=== PATIENT | male | born 1950 | race Caucasian/White ===

== ENCOUNTER 2016-06-29 10:13 | Inpatient (IN) | payer OTHER ==
[2016-06-29] VITALS (12 sets, daily range): BP systolic 158–211; BP diastolic 71–139; PULSE 78–106; RESP 18–27; O2SAT 94–99
[~2016-06-29] VITALS: Ht 177.8 cm; Wt 96.1 kg
[~2016-06-29 10:13] MED LIST: APIX5TAB PO; ATOR10TA66 PO; CALC-990 PO; FUR20 PO; GUAI400T57 PO; LISI-567 PO; METO-272 PO; POTA20TA7 PO; SPIR25TA PO
--- NOTE | 2016-06-29 10:47 | ED.REPORT ---
HPI-Dyspnea / Wheezing Date of Service Jun 29, 2016 ED Provider: David Sibley MD A 65 year old male with h/o CHF and HTN presents to the ED c/o SOB intermittently for last 3 weeks, symptoms slowly becoming worse. Associated orthopnea. He cannot lye flat and must sleep propped upright. He reports he did not follow up with cardiology and has been off all his medications. He had lasix the longest, but ran out of that too several weeks ago. He reports edema , and reports that when he was on his medication, he experimented with CVD medication which seemed to help him, the patient having taken some in the last 24 hours. He took aspirin earlier today. Nursing Notes Stated Complaint: SOB Chief Complaint: Respiratory Distress Nursing Notes Reviewed: Yes ([employer], maufait not reconciled) Allergies: Coded Allergies: No Known Allergies (Unverified , 10/06/15) Scheduled Apixaban (Eliquis) 5 Mg Tablet 5 MG PO BID Atorvastatin Calcium (Atorvastatin Calcium) 10 Mg Tablet 10 MG PO HS Calcium Carb/Mag Ox/Zinc Sulf (Mwrklow-Nkdqmucap-Nilo Tablet) 334 Mg-134 Mg-5 Mg Tablet 1 EACH PO DAILY Furosemide (Furosemide) 20 Mg Tab 20 MG PO DAILY Lisinopril (Lisinopril) 20 Mg Tablet 20 MG PO DAILY Lisinopril (Lisinopril) 20 Mg Tablet 20 MG PO HS Metoprolol Succinate ER (Metoprolol Succinate ER) 50 Mg Tab.er.24h 50 MG PO DAILY Potassium Chloride ER (Klor-Con M20) 20 Meq Tablet 20 MEQ PO DAILY Spironolactone (Aldactone) 25 Mg Tablet 25 MG PO DAILY Scheduled PRN Guaifenesin (Guaifenesin) 400 Mg Tablet 800 MG PO BID PRN PRN For Congestion General Time Seen by MD: 10:41 Chief Complaint Shortness of breath Hx Obtained From: Patient Arrived By: Walk-in Sudden in Onset?: No Onset Occurred: More than a week ago... (3 weeks) Symptom Duration: Intermittent Severity: Current: Moderate Severity: Maximum: Moderate Recent Healthcare: No recent doctor visit Similar Sx Previous: No Past Medical History Past Medical History Notes: Prior admission for acute decompensated heart failure in October 2015 Echo October 2015: Dilated left and right ventricles, dilated atria, severe systolic function with EF of 20-30% with global severe hypokinesis Past Medical History History of CHF History of atrial flutter with RVR, status post electrical cardioversion October 2015 Hypertension History of elevated troponin History of acute kidney injury creatinine 1.35 in October 2059 depression prediabetic hernia, herniated disc Past Surgical History spinal surgery Denies: Appendectomy, Cholecystectomy Smoking History Never Smoker Social History none reported Ambulatory Status Independent Review of Systems Review of Systems Note: difficulty sleeping Constitutional: Denies: Chills, Fever Respiratory: Reports: Shortness of breath Cardiovascular: Denies: Chest pain Complete sys rev & neg: except as marked. Physical Exam Initial Vital Signs Vital Signs (First) Date Time Temp Pulse Resp B/P Pulse Ox O2 Delivery O2 Flow Rate FiO2 06/29/16 10:32 36.6 106 22 211/139 98 Room Air 06/29/16 11:41 30 Initial VS: Reviewed, Vital signs abnormal General/Constitutional: Awake, Alert Patient is sitting up on the edge of his bed with legs dangling over the edge because SOB is so bad that it prevents him from lying down flat on his back. Neck: Atraumatic, Supple Resp Distress / Stridor: Positive: Resp distress severe (signifigant respiratory distress) Rales / Rhonchi: Positive: Rales bilateral bases ENT: Atraumatic, Mucous membranes moist Abdomen: Atraumatic, No guarding, No rebound Skin: Atraumatic, Color NL, Warm, Dry Neurologic: Oriented X3, Speech NL Head / Eyes: Atraumatic, Normocephalic, PERRL, EOMI Interpretation & Diagnostics Lab Results Interpretation Result Diagram: 06/29/16 1120 06/29/16 1120 Test 06/29/16 11:20 06/29/16 11:50 White Blood Count 7.7th/mm3 (3.8-10.1) Red Blood Count 5.13mil/mm3 (4.40-5.80) Hemoglobin 14.9g/dL (13.8-17.2) Hematocrit 44.0% (41.0-50.0) Mean Corpuscular Volume 85.8fL (81-100) Mean Corpuscular Hemoglobin 29.0pg (27.0-35.0) Mean Corpuscular Hemoglobin Concent 33.9% (32.0-37.0) Red Cell Distribution Width 15.8% (12.3-15.4) Platelet Count 214bil/L (150-400) Neutrophils (%) (Auto) 77.9% (40-74) Lymphocytes (%) (Auto) 13.2% (14-46) Monocytes (%) (Auto) 6.1% (4-12) Eosinophils (%) (Auto) 2.0% (0-5) Basophils (%) (Auto) 0.7% (0-3) Sodium Level 135mEq/L (134-144) Potassium Level 3.9mEq/L (3.5-5.2) Chloride Level 99mEq/L (97-108) Carbon Dioxide Level 19mmol/L (18-29) Blood Urea Nitrogen 17mg/dL (8-27) Creatinine 1.31mg/dL (0.76-1.27) Estimat Glomerular Filtration Rate 59mL/min (>59) Glucose Level 135mg/dL (60-99) Calcium Level 9.5mg/dL (8.5-10.1) Total Bilirubin 1.4mg/dL (0.0-1.2) Aspartate Amino Transf (AST/SGOT) 24U/L (0-50) Alanine Aminotransferase (ALT/SGPT) 27U/L (0-44) Alkaline Phosphatase 87U/L (25-160) Troponin T 0.025ug/L (0.0-0.011) Pro-B-Type Natriuretic Peptide 7086pg/mL (0-210) Total Protein 6.9g/dL (6.4-8.4) Albumin 4.0g/dL (3.4-5.0) Urine Color Yellow (YELLOW) Urine Appearance Clear (CLEAR,HAZY) Urine pH 6.0 (5.0-8.0) Urine Specific [place] 1.015 (1.003-1.035) Urine Protein 100mg/dL (NEG,TRACE) Urine Glucose (UA) Negativemg/dL (NEGATIVE) Urine Ketones Negativemg/dL (NEGATIVE) Urine Occult Blood Negative (NEGATIVE) Urine Nitrite Negative (NEGATIVE) Urine Bilirubin Negative (NEGATIVE) Urine Urobilinogen Normalmg/dL (NORMAL) Urine Leukocyte Esterase Negative (NEGATIVE) Urine RBC 0-2/hpf (0-2) Urine WBC 0-5/hpf (0-5) Urine Epithelial Cells Occasional/hpf (NONE-MOD) Urine Crystals None seen (NONE SEEN) Urine Bacteria Few/hpf (NONE-FEW) Urine Hyaline Casts Rare/lpf (NONE) Urine Granular Casts None seen (NONE SEEN) Urine Waxy Casts None seen (NONE SEEN) Urine Red Blood Cell Casts None seen (NONE SEEN) Urine White Blood Cell Casts None seen (NONE SEEN) Urine Mucus None seen (None Seen) Urine Trichomonas None seen (NONE SEEN) Urine Yeast None (NONE SEEN) Urinalysis Comment None Urine Culture Reflexed Not indicated Lab Results Interpretation: CBC normal CMP mild renal sufficiency BNP elevated Troponin marginally elevated Urinalysis negative ECG Interpretation ECG Interpretation: Rate is 103. Sinus tachycardia. Left atrial enlargement. Incomplete left bundle branch block. LVH with secondary repolarization abnormality. Anterior ST elevation, probably due to LVH. Time: 10:30 Interpreted by: ED physician X-Ray Chest Interpretation Chest Xray Interpretation: IMPRESSION: Moderate cardiomegaly, without acute cardiopulmonary disease. Dictated by: Anderson iWlde M.D. on 06/29/2016 at 11:02 Approved by: Anderson Wilde M.D. on 06/29/2016 at 11:03 Interpretation / Wet Read by: Interpret - Radiologist Re-Eval/Medical Decision Med Decision/Clinical Course This is a 65-year-old male who has severe global cardiomyopathy with previous admission in October 2015 at an echo around 20% at that time. Multitude of medications, reports he did not keep his follow up anybody, he completely ran out of all of his medications in recent weeks and months. He did have Lasix prescription which lasted the longest, but is now been out for the past 2-3 weeks. Over the past 2-3 weeks he presents with worsening shortness of breath, dyspnea on exertion, and orthopnea. He denies la nena chest pain. Last night he could not sleep even sitting upright, and so came to the emergency department. He is noticing increasing edema of both legs which was artery severe at baseline. He denies fevers or chills. On exam the patient's profoundly hypertensive, he is dyspneic even at rest, and is sitting upright with his legs over the edge of the gurney as he reports his legs up on the gurney worsens his shortness of breath., He has decreased breath sounds, rarles, JVD, and profound lower extremity edema. EKG does not reveal clear acute ischemic changes, however overall presentation is concerning for acute decompensated heart failure setting around hypotension. Patient remained multiple sublingual nitroglycerin, and was placed on BiPAP, had Nitropaste applied, and was started on a nitro drip with improvement. He also received empiric Lasix. Patient responded to therapy has improved. He still hypertensive and is on a nitro drip at 200 mics. He is being admitted to the unit for continued care but is markedly improved he may be able to be weaned off drips and transferred to PCU. At this point the patient is clear heart failure from medication noncompliance, because of that I have not immediately consult cardiology as I think the first episode when resuming medication and medical therapy. And depending on the patient's response to therapy, the need for formal cardiac consultation can be determined by the hospitalist. The patient be admitted for continued management, and is significantly improved at time of admission. Source of Hx: Old records Re-Evaluation/Progress #1: Time of Eval: 11:03 Patient Status: Condition improved Re-Evaluation/Progress Note: Explained plan for admission. Re-Evaluation/Progress #2: Time of Eval: 11:07 Re-Evaluation/Progress Note: Gave Nitro to patient. Re-Evaluation/Progress #3: Time of Eval: 11:35 Patient Status: Condition improved Re-Evaluation/Progress Note: Rechecked patient who is improved. Consultation : Referral / Consult Name: Vitor Hung MD Consulted With: Hospitalist Call Returned at: 11:51 Lead Python Developer: Accepts admit Differential Diagnosis: Positive: Congestive heart failure, Negative: Allergic reaction, Cardiogenic shock, Dysrhythmia, Foreign body airway, Pneumonia, Pneumothorax, Pulmonary embolism Counseled Regarding: Diagnosis, Lab results, Need for follow-up, Need for admission Discharge & Departure Impression: Primary Impression: Acute decompensated heart failure Additional Impression: Noncompliance with medication regimen Disposition: ADMITTED TO HOSPITAL Discharge Condition All VS Reviewed: Yes Condition: Improved Referrals: Fay Dubon MD (PCP) Crit Care Except Billable Proc Time Spent: 30-74 minutes Services Performed: Patient management by me, Time spent at bedside, Reviewing test results, Reviewing imaging, Discussing patient care, Documentation in record, Time with fam/surrogate, Other Scribe Attestation Portions of this note were transcribed by Anderson Douglas. IDr. Sibley personally performed the history, physical exam and medical decision-making; I reviewed and confirmed the accuracy of the information in the transcribed note. Signed by: Adilene Escobar, 06/29/2016, 1102. copies to: Fay Dubon MD, Matthew F MD Jun 29, 2016 10:47 Anderson Douglas Jun 29, 2016 10:57
--- NOTE | 2016-06-29 11:04 | DRSVH ---
PROCEDURE: X-RAY CHEST ONE VIEW, PORTABLE ([id number]) INDICATIONS: 65 year-old male with shortness of breath. TECHNIQUE: One view of the chest was acquired. COMPARISON: [facility], CR, XR CHEST 2VW, 10/13/2015, 15:25. [facility], CR, XR CHEST 1VW (PORTABLE), 10/12/2015, 15:29. [facility], CR, XR CHEST 2VW, 10/06/2015, 16: 48. FINDINGS: Surgical changes and devices: None. Lungs and pleura: No pleural effusions or pneumothorax. Lungs are clear. Mediastinum: Mediastinal contours appear normal. Moderate cardiomegaly is unchanged. Bones and chest wall: No suspicious bony lesions. Overlying soft tissues appear unremarkable. IMPRESSION: Moderate cardiomegaly, without acute cardiopulmonary disease. Dictated by: Anderson Wilde M.D. on 06/29/2016 at 11:02 Approved by: Anderson Wilde M.D. on 06/29/2016 at 11:03
[2016-06-29] MEDS ORDERED: Furosemide 10 mg/mL 4 mL Inj IVPUSH ONE (11:05)
[2016-06-29] MEDS ORDERED: Nitroglycerin 2% 1 Gm Ointment TOPICAL SCH (11:10)
[2016-06-29 11:30] LABS: BASOPHILS % (AUTO) 0.7 % (0-3); MONOCYTES % (AUTO) 6.1 % (4-12); Mean Corpuscular Volume 85.8 fL (81-100); NEUTROPHILS % (AUTO) 77.9 % (40-74); Platelet Count 214 bil/L (150-400)
[2016-06-29] MEDS: Nitroglycerin 50 mg/250 mL D5W 50,000 MCG in IV Premix 1 EACH IV SCH ×2 (11:53→15:33)
[2016-06-29 12:02] LABS: APPEARANCE,URINE CLEAR (CLEAR,HAZY); COLOR,URINE YELLOW (YELLOW); OCCULT BLOOD,URINE NEGATIVE (NEGATIVE); UROBILINOGEN,URINE NORMAL (NORMAL)
[2016-06-29 12:07] LABS: TROPONIN T 0.025 ug/L (0.0-0.011)
[2016-06-29] MEDS ORDERED: Polyethylene Glycol (PEG) 17 Gm Powder PO PRN (13:20)
[2016-06-29] MEDS ORDERED: Alum-Mag Hydrox-Simeth 30 mL Suspension PO PRN (13:20)
[2016-06-29] MEDS ORDERED: Ondansetron 2 mg/mL 2 mL Inj IVPUSH PRN (13:20)
[2016-06-29] MEDS ORDERED: Senna-Docusate 8.6-50 mg Tablet PO PRN (13:20)
[2016-06-29 14:17] LABS: INR 1.32 ratio
[2016-06-29 14:41] LABS: Magnesium 1.9 mg/dL (1.6-2.6)
--- NOTE | 2016-06-29 16:03 | PCM.HPMED ---
Subjective Date of Service Jun 29, 2016 Primary Provider: Admitting Physician: Vitor Hung MD Primary Care Physician: Fay Dubon MD Attending Physician: Vitor Hung MD Chief Complaint: Shortness of breath History of Present Illness: is a 65-year-old gentleman with past medical history of congestive heart failure systolic dysfunction, hypertension, depression, prediabetes, atrial flutter with RVR (cardioverted 10/2015) presented to [facility] emergency department via personally owned vehicle secondary to worsening shortness of breath times several weeks. Patient was last admitted to Hospital October 2015 for CHF exacerbation, upon discharged he was prescribed multiple medications and followed up with his primary care physician at [facility]. He saw his primary doctor once after being discharged and not again. He states that somewhere along the way his medications dropped off in that he stopped filling his prescriptions. When asked why he said because "life got in my way". He saw Dr. Hinton cardiology one time as well and was prescribed his current medication list is seen in the med rec. Over the past several weeks he has become increasingly short of breath on exertion and while laying flat stating he must sleep sitting up or using multiple pillows. He states he has a markedly increasing lower extremity edema over the last few weeks. He denies chest pain, headache prior to arrival, syncope, abdominal pain, GI symptoms. He states polyuria, shortness of breath increased lower extremity edema swelling and erythema, left eye blurry vision and at time of interview endorses a headache. He states blurry vision in his left eye. In the ED he was given nitroglycerin sublingual followed by Nitropatch followed by nitro drip at rate of 150 at time of admission. He was also given a milligrams IV Lasix with improvement meant of his shortness of breath and markedly increase in urinary output. Allergies Coded Allergies: No Known Allergies (Unverified , 06/29/16) Home Medications Home medications per med rec: Apizxoban 5 mg by mouth twice a day Lisinopril 20 mg by mouth at bedtime Lisinopril 20 mg by mouth daily Metoprolol ER 50 mg by mouth daily Spironolactone 25 mg by mouth daily Potassium chloride 20 mEq by mouth daily Atorvastatin 10 mg by mouth at bedtime Furosemide 20 mg by mouth daily Calcium carbonate magnesium oxide zinc sulfate multivitamin tablet one daily Guaifenesin 800 mg by mouth twice a day as needed PMH Congestive heart failure with systolic dysfunction Hypertension Depression Atrial flutter with RVR status post cardioversion 10/2015 Acute kidney injury Hyperlipidemia Prediabetes Chronic back pain Inguinal hernia Surgical History spinal surgery Family History Mother and father both had history of hypertension, denies family history of CVA and DE, diabetes Recent history of 3-year-old grandnephew from brain cancer this past year Social History Occupation: poker player Hx Alcohol Use: Yes (RARE) Hx Substance Use: Yes (PO marijuana OILS ETC FOR PAIN AND SLEEP) Hx Tobacco Use: No Smoking Status: Never Smoker Living Arrangement: Alone Additional Information Retired accountant assistant and private household worker, currently works as a direct care professional One of his daughters, his son-in-law and his grandchild live in [place] He has another daughter who lives in [place] Exam Vital Signs Vital Sign - Last Date Time Temp Pulse Resp B/P Pulse Ox O2 Delivery O2 Flow Rate FiO2 06/29/16 15:28 36.7 78 24 192/109 97 Nasal Cannula 2.00 06/29/16 11:41 30 Exam General: Older than stated age male, obese sitting up in hospital bed on oxygen via nasal cannula in no acute distress, appropriately interactive. HEENT: Normocephalic, atraumatic. External ears without defect. Pupils equal, round, and reactive to light and accommodation. Anicteric sclerae, moist conjunctivae, and no lid lag. Neck: Supple with full range of motion. No JVD appreciated the patient sitting up in hospital bed Cardiovascular: Regular rate and rhythm with no murmurs, rubs, or gallops appreciated Pulmonary: Clear to auscultation upper anterior lobes bilaterally, crackles heard left and right lower bases. No use of accessory muscles nonlabored breathing Abdomen: Distended abdomen soft and nontender to palpation 4 quadrants. Extremities: Bilateral lower extremity edema extending to mid thigh. Mildly pitting. Lower extremity erythema bilaterally circumferential around Skin: Normal temperature, turgor, and texture Neurological: Cranial nerves grossly intact. Psychiatric: Normal mood and affect. Alert and oriented to person, place, and time. Lab and Diagnostics Result Diagram: 06/29/16 1120 06/29/16 1120 X-Rays, CTs and MRIs . X-RAY CHEST ONE VIEW, PORTABLE IMPRESSION: Moderate cardiomegaly, without acute cardiopulmonary disease. Dictated by: Anderson Wilde M.D. on 06/29/2016 at 11:02 12-lead ECG EKG showed sinus rhythm in the 80s, left bundle branch block. Assessment & Plan 65 male past with medical history CHF, systolic dysfunction, depression, hypertension admitted for congestive heart failure exacerbation hospital day 1. 1. CHF exacerbation with systolic dysfunction. Acute on chronic. Present on admission. Ongoing. - Most likely secondary to medication noncompliance - Lasix 40 mg IV in the ED - CCU status - Nitroglycerin drip - Continue Lasix 40 mg IV twice a day - Hold fluids - Strict monitoring of ins and outs - We will restart home medications once hemodynamically stable - Echo pending - Continue telemetry 2. Hypertension. Present on admission. Chronic. Ongoing - Most likely secondary to medication noncompliance exacerbated by #1 - Refractory to nitroglycerin and diuresis to date - Add nicardipine will wean nitroglycerin after better control of hemodynamic state is achieved - SBP to remain above 160 today 3. Chronic kidney disease. Present on admission. Ongoing - History of elevated creatinine levels between 1.3-1.5 - Creatinine elevated on admit 1.3 - Avoid nephrotoxic agents - Monitor closely secondary to Lasix administration - Continue monitor 4.Elevated troponin. Present on admission. Unknown chronicity. Ongoing - Initial troponin level in the ED 0.025 - Most likely secondary to #1and #3 5. Hyperglycemia. Present on admission. Ongoing. - A1c pending 6. Hyperlipidemia. Present on admission. Chronic. Ongoing - Continue home statin 7. Depression and chronic. Present on admission. Ongoing - Not currently on any home medications - We will continue to monitor Patient Status: Patient was admitted under inpatient status with expected length of stay greater than two midnights due to severity of presenting symptoms , risk of adverse event, and complexity of treatment plan. Pain Evaluation: Adequate Pain Control GI Prophylaxis: H2 valente VTE Prophylaxis: Sub-Q Heparin (Unfractionated) (hepi) Resuscitation Status: CPR: Attempt Resuscitation Attending Statement The patient was seen and examined together with Dr. Chand on 06/29/2016 and I agree with the history, exam and plan as outlined in the note above. . ESTRELLA CHAND DO Jun 29, 2016 16:03 Vitor Hung MD Jun 30, 2016 08:12
--- NOTE | 2016-06-29 16:06 | DRSVH ---
[facility] [address] [place] [address] Echocardiogram Report Name: DAVID FLOWER MStudy Date: 06/29/2016 Height: 70 in Hospital Exam Location: [facility] Weight: 230 lb Gender: Male BSA: 2.2 m2 : 1950 Age: 65 yrs BP: 180/104 mmHg Reason For Study: HEART FAILURE Ordering Physician: Performed By: Darvin James Referring Physician: Abelardo GARCIA Interpretation Summary The left ventricle is mildly dilated. Left ventricular systolic function is moderately reduced. The ejection fraction is estimated to be 40-45%. Compared to the prior exam, the left ventricular function is improved. Diastolic function could not be accurately assessed due to confounding valvular disease. The right ventricle is normal size. Right ventricular systolic function is mildly reduced. The right ventricular systolic pressure is estimated at 37 mmHg assuming a right atrial pressure of 3 mm Hg. Both atria are severely dilated. There is severe mitral regurgitation. Flow reversal noted in pulmonary veins consistent with significant mitral regurgitation. Compared to the prior [facility], there has been an increase in the severity of mitral regurgitation. There is no other significant valvular heart disease. The ascending aorta is mildly enlarged. Procedure: A two-dimensional transthoracic echocardiogram with color flow and Doppler was performed. The study quality was technically good. Comparison is made with the echocardiogram of 10/13/15. The patient was in normal sinus rhythm during the exam. Left Ventricle: The left ventricle is mildly dilated. Left ventricular wall thickness is mildly increased. Left ventricular systolic function is moderately reduced. The ejection fraction is estimated to be 40-45%. Compared to the prior exam, the left ventricular function is improved. There is mild to moderate global hypokinesis of the left ventricle. Diastolic function could not be accurately assessed due to confounding valvular disease. Right Ventricle: The right ventricle is normal size. Right ventricular systolic function is mildly reduced. Atria: Both atria are severely dilated. The interatrial septum is intact with no evidence for an atrial septal defect. Mitral Valve: The mitral valve leaflets appear mildly thickened, but open well. There is severe mitral regurgitation. Flow reversal noted in pulmonary veins consistent with significant mitral regurgitation. Compared to the prior echo study, there has been an increase in the severity of mitral regurgitation. Aortic Valve: The aortic valve is trileaflet. The aortic valve opens well. No aortic regurgitation is present. Tricuspid Valve: The tricuspid valve is normal in structure and function. There is mild tricuspid regurgitation. The right ventricular systolic pressure is estimated at 37 mmHg assuming a right atrial pressure of 3 mm Hg. Pulmonic Valve: The pulmonic valve is normal in structure and function. There is trace pulmonic regurgitation. There is no other significant valvular heart disease. Great Vessels: The aortic root is normal size. The ascending aorta is mildly enlarged. The pulmonary artery is normal size. The IVC is of normal diameter and collapses greater than 50% with a sniff. This suggests a low right atrial pressure of 3 mm Hg. Pericardium/ Pleura There is no pericardial effusion. There is no pleural effusion. MMode/2D Measurements & Calculations LVIDd: 6.0 cm RA long axis: 7.1 cm LVOT diam LVIDs: 4.3 cm LA A2 area: 41.4 cm FS: 28.7 % LA A4 area: 36.4 cm RA area: 32.7 cm AoV Opening EPSS: 1.3 cm LA length (vol): 7.5 cm RA vol: 128.1 ml IVSd: 1.4 cm LA vol: 169.7 ml RA : 57.9 ml/m2 Ao root diam LVPWd: 1.4 cm LA vol index asc Aorta Diam: 3.7 cm IVC diam: 1.9 cm EDV(MOD-sp2) LV steele. diameter/BSA LV sys. diameter/BSA RVD1 (basal) (cm/m^2): 2.7 (cm/m^2): 1.9 : 4.4 cm ESV(MOD-sp2) EF(MOD-sp2) RVD2 (mid) : 3.6 cm Doppler Measurements & Calculations Ao V2 max MV E max von MV E/A: 1.6 TR max von : 147.6 cm/sec : 122.2 cm/sec Med Peak E' Von : 289.9 cm/sec Ao max PG MV A max von TR max P.6 mmHg : 8.7 mmHg : 74.9 cm/sec E/E' med: 30.5 PA V2 max: 68.6 cm/sec Ao mean PG Pulm A Revs Dur PA mean P.92 mmHg : 5.6 mmHg PA Accel Time: 0.08 sec MV A dur: 0.13 sec MV dec time Ao V2 mean PA V2 mean Pulm A Revs Dur - MV A : 0.16 sec : 113.2 cm/sec : 44.8 cm/sec Dur: -0.05 msec Ao V2 VTI: 29.1 cmPA pr(Accel) : 37.9 mmHg Reading Physician:PM
--- NOTE | 2016-06-29 16:07 | NUR ---
Admit/ hypertension/headache Patient was admitted to CCU at 1300 today. Patient was awake and oriented. Oxygen saturation on 4l NC was 100%. Oxygen gradually decreased to 2L NC with oxygen saturation remaining 98-99%. Patient denied having shortness of breath while at rest but appeared to having increased work of breathing with activity in bed such as repositioning. Patient arrived with nitroglycerine drip at 150mcg/min. at this level patient was hypertensive with SBP 180-210 and MAP 110-135. Nitroglycerin drip was increased to 180mcg/min with no improvement in BP. Patient also developed a 6-7/10 headache since arriving in CCU MD was consulted regarding this findings. No farther increase in nitroglycerin drip at this time- MD to gradually reintroduce patients home. Patient was medicated with Tylenol 650mg PO for headache- continue assessment.
[2016-06-29] MEDS: Sodium Chloride LOK Flush 10 mL Syringe IVFLUSH SCH ×2 (16:30→23:34)
[2016-06-29] MEDS ORDERED: Heparin 5,000 Unit/mL Inj SUBQ SCH (16:50)
[2016-06-29] MEDS: NiCARdipine Inj 25 MG in Dextrose 5% 240 ML IV SCH ×3 (16:56→23:34)
--- NOTE | 2016-06-29 19:11 | NUR ---
Normalized BP Nicardipine drip was started at 1700 today. Within 45min SBP started to decrease to 150-160 ranges. Nitroglycerin drip was trued gradually down by increments of 50mcg/min and placed on standby by 1814. SBP continue decrease to 130-140 ranges with MD stated goal for SBP of 140-150- nicardipine drip was titrated down to 4mg/h from 5mg /h by 1829. Patient stated that his headache resolved and denied having any pain at eh time. Report was given to the receiving RN continue assessment.
[2016-06-29] MEDS ORDERED: Furosemide 10 mg/mL 4 mL Inj IVPUSH SCH (20:30)
[2016-06-30] VITALS (8 sets, daily range): BP systolic 111–164; BP diastolic 69–94; PULSE 64–83; RESP 14–22; O2SAT 92–97
[2016-06-30 03:32] LABS: BASOPHILS % (AUTO) 0.3 % (0-3); EOSINOPHILS % (AUTO) 2.3 % (0-5); Mean Corpuscular Hemoglobin 28.3 pg (27.0-35.0); NEUTROPHILS % (AUTO) 84.3 % (40-74); Platelet Count 240 bil/L (150-400)
[2016-06-30 03:58] LABS: TROPONIN T 0.022 ug/L (0.0-0.011)
[2016-06-30 04:14] LABS: Magnesium 1.7 mg/dL (1.6-2.6); Phosphorus 3.3 mg/dL (2.5-4.9)
--- NOTE | 2016-06-30 04:53 | NUR ---
P: hypertension I: nicardipine drip E: Denies pain, dyspnea, N/V. Nicardipine drip at maintenance phase at 3mg/hr. SBP 140-160s. UOP very responsive to lasix voiding 8875ml via urinal. Tele SR w/ IVCD. RA sat dozing = 88%. 2L NC and sats are in the mid 90s. Intermittent loose cough. Sleeping intermittently. Talkative at times.
[2016-06-30] MEDS ORDERED: Potassium Chloride 20 mEq SR Tablet PO ONE ×2 (06:50→14:20)
--- NOTE | 2016-06-30 06:58 | DRSVH ---
PROCEDURE: X-RAY CHEST ONE VIEW, PORTABLE ([id number]) INDICATIONS: sob TECHNIQUE: One view of the chest was acquired. COMPARISON: [facility], CR, XR CHEST 1VW (PORTABLE), 06/29/2016, 10:32. FINDINGS: Surgical changes and devices: None. Lungs and pleura: No pleural effusions or pneumothorax. Lungs are clear. Mediastinum: Mediastinal contours appear normal. Heart size is enlarged. Bones and chest wall: No suspicious bony lesions. Overlying soft tissues appear unremarkable. IMPRESSION: Cardiomegaly without acute pulmonary process. Dictated by: Esthela Hale M.D. on 06/30/2016 at 6:56 Approved by: Esthela Hale M.D. on 06/30/2016 at 6:56
[2016-06-30] MEDS ORDERED: Glucose 40% Oral Gel 15 Gm Tube PO PRN (07:40)
--- NOTE | 2016-06-30 07:42 | PCM.PNMED ---
Subjective Date of Service Jun 30, 2016 Subjective Overnight: Urine output total approximately 8 L overnight. Nitro drip discontinued with transition to nicardipine drip. One report of O2 saturations dropping with room air though overall remained in the mid 90s on room air. No other events reported, patient slept well through the night. Heart rate remained sinus rhythm in 70s to 80s. Today: Patient awake and alert dictating appropriately sitting up in bed. States he feels much better overall, no longer feels any shortness of breath. Denies any chest pain. Denies any abdominal pain. States headache is resolved. Exam Vital Signs Vital Sign - Last Date Time Temp Pulse Resp B/P Pulse Ox O2 Delivery O2 Flow Rate FiO2 06/30/16 04:30 36.6 81 14 164/79 97 Nasal Cannula 2.00 06/29/16 11:41 30 Intake and Output 06/29/16 06/29/16 06/30/16 Cumulative From/Thru 14:59 22:59 06:59 06/29/16 10:32 - 06/30/16 06:35 Intake Total 264 ml 1683 ml 1947 ml Output Total 1050 ml 2650 ml 9225 ml 53761 ml Balance -1050 ml -2386 ml -7542 ml -35252 ml Intake Oral 50 ml 1280 ml 1330 ml IV Total 214 ml 403 ml 617 ml Output Urine Total 1050 ml 2650 ml 9225 ml 86525 ml # Voids 4 11 15 # Bowel Movements 0 0 Exam General: Older than stated age male, obese sitting up in hospital bed, no supplemental oxygen in place. In no acute distress, appropriately interactive. HEENT: Normocephalic, atraumatic. External ears without defect. Pupils equal, round, and reactive to light and accommodation. Neck: Supple with full range of motion. No JVD. Cardiovascular: Regular rate and rhythm with no murmurs, rubs, or gallops appreciated Pulmonary: Mild expiratory crackles heard right upper and lower lung base. No use of accessory muscles nonlabored breathing Abdomen: Distended abdomen soft and nontender to palpation 4 quadrants. Extremities: Bilateral lower extremity edema extending to mid thigh, improved from yesterday. Lower extremity erythema bilaterally circumferential around Skin: Normal temperature, turgor, and texture Neurological: Cranial nerves grossly intact. Psychiatric: Normal mood and affect. Alert and oriented to person, place, and time. IVs and Medications Medications Reviewed: Medications were reviewed in detail Lab and Diagnostics Result Diagram: 06/30/16 0320 06/30/16 0320 Microbiology Nasal MRSA screen negative X-Rays, CTs and MRIs . X-RAY CHEST ONE VIEW, PORTABLE IMPRESSION: Moderate cardiomegaly, without acute cardiopulmonary disease. Dictated by: Anderson Wilde M.D. on 06/29/2016 at 11:02 X-RAY CHEST ONE VIEW, PORTABLE IMPRESSION: Cardiomegaly without acute pulmonary process. Dictated by: Esthela Hale M.D. on 06/30/2016 at 6:56 12-lead ECG EKG showed sinus rhythm in the 80s, left bundle branch block. Cardiac Echo Impressions . Echocardiogram Report Interpretation Summary: The left ventricle is mildly dilated. Left ventricular systolic function is moderately reduced. The ejection fraction is estimated to be 40-45%. Compared to the prior exam, the left ventricular function is improved. Diastolic function could not be accurately assessed due to confounding valvular disease. The right ventricle is normal size. Right ventricular systolic function is mildly reduced. The right ventricular systolic pressure is estimated at 37 mmHg assuming a right atrial pressure of 3 mm Hg. Both atria are severely dilated. There is severe mitral regurgitation. Flow reversal noted in pulmonary veins consistent with significant mitral regurgitation. Compared to the prior BUSHRA, there has been an increase in the severity of mitral regurgitation. There is no other significant valvular heart disease. The ascending aorta is mildly enlarged. Assessment & Plan 65-year-old male past medical history CHF, systolic dysfunction, depression, hypertension admitted for congestive heart failure exacerbation hospital day 2. 1. CHF exacerbation, systolic dysfunction. Acute on chronic Present on admission. Ongoing. - Most likely secondary to medication noncompliance - Lasix 40 mg IV in the ED - Urine output today approximately 9.2 L - CCU status - Nitroglycerin drip weaned transition to nicardipine drip overnight - Transitioned to oral Lasix 40 mg twice a day - Hold fluids - Strict monitoring of ins and outs - Restarting home medication, lisinopril. - Echo showed EF 40-45% (improved from previous exam), bilateral severe atrial dilation, severe mitral regurgitation - Continue telemetry 2. Hypertension. Present on admission. Chronic. Improved - Most likely secondary to medication noncompliance exacerbated by #1 - Refractory to nitroglycerin - Very responsive to nicardipine drip with normalization of blood pressure, we will begin to wean today with addition of home medication - Added home spironolactone 3. Chronic kidney disease. Present on admission. Ongoing - History of elevated creatinine levels between 1.3-1.5 - Creatinine elevated on admit 1.3, trending down - Avoid nephrotoxic agents - Monitor closely secondary to Lasix administration - Continue monitor 4.Elevated troponin. Present on admission. Unknown chronicity. Ongoing - Initial troponin level in the ED 0.025 - Most likely secondary to #1and #3 - Troponin remained stable 5. Hyperglycemia. Present on admission. Ongoing. - A1c 5.9 - Low-dose correctional scale 6. Hyperlipidemia. Present on admission. Chronic. Ongoing - Continue home statin 7. Depression and chronic. Present on admission. Ongoing - Not currently on any home medications for this - We will continue to monitor Disposition: Remain inpatient status, secondary to PCC after successful wean from nicardipine drip. Will continue to optimize home medications. Pain Evaluation: Adequate Pain Control GI Prophylaxis: H2 valetne VTE Prophylaxis: Sub-Q Heparin (Unfractionated) (hepi) Resuscitation Status: CPR: Attempt Resuscitation Attending Statement The patient was seen and examined together with Dr. Chand on 06/30/2016 and I agree with the history, exam and plan as outlined in the note above. . ESTRELLA CHAND DO Jun 30, 2016 07:42 Vitor Hung MD Jul 01, 2016 07:34
[2016-06-30] MEDS: Insulin LISPRO 300 Unit/3 mL Inj SUBQ SCH ×4 (08:00→20:29)
[2016-06-30] MEDS ORDERED: Potassium Chloride 20 mEq SR Tablet PO SCH (08:30)
[2016-06-30] MEDS: Sodium Chloride LOK Flush 10 mL Syringe IVFLUSH SCH ×2 (08:30→15:49)
[2016-06-30] MEDS: NiCARdipine Inj 25 MG in Dextrose 5% 240 ML IV SCH ×4 (08:42→20:29)
--- NOTE | 2016-06-30 15:43 | NUR ---
Social Work: Screening Data: Pt is a 65 y/o male admitted for CHF. Pt's PCP is Dr Dubon, pt's insurance is [employer]. EMR reviewed. Readmit score is 5. [employer] will continue to follow for possible HH need for RN. Assessment: Pt who is independent at baseline. Plan: Pt will d/c home via POV when medically stable. [employer] will continue to follow for possible HH need for RN. SEAN Shay
--- NOTE | 2016-06-30 16:25 | NUR ---
Hemodynamics/Activity Nicardipine weaned off once Lisinopril PO started. 1600 BP, 111/83, which is "low" for patient. Voiding well per urinal. Lasix given as ordered. LE edema continues, but according to patient is in improving. Patient is up independently in room now and on a portable tele box. PCC status. Using cane when ambulating and know to call for help if he is feeling dizzy.
--- NOTE | 2016-06-30 16:56 | NUR ---
CHF NUTRITION EDUCATION. Received consult from Dr. Chand for CHF education. The patient states that he has done significant research on the topic of sodium restriction and believes that electrolyte balance is the lang factor in controlling CHF. He declined education and reference materials.
[2016-07-01] VITALS (10 sets, daily range): BP systolic 146–159; BP diastolic 85–102; PULSE 55–87; RESP 16–24; O2SAT 92–96
[2016-07-01] MEDS: Sodium Chloride LOK Flush 10 mL Syringe IVFLUSH SCH ×3 (00:40→16:30)
[2016-07-01] MEDS: NiCARdipine Inj 25 MG in Dextrose 5% 240 ML IV SCH (03:05)
--- NOTE | 2016-07-01 03:14 | NUR ---
Activity: Pt. ambulating independently in room and in hallway. Tolerating activity well. Gait strong and steady. No overt signs or symptoms of distress. Pt. talkative with staff and appears to be in good spirits.
[2016-07-01 03:31] LABS: BASOPHILS % (AUTO) 0.5 % (0-3); EOSINOPHILS % (AUTO) 3.8 % (0-5); MONOCYTES % (AUTO) 10.1 % (4-12); Mean Corpuscular Hemoglobin 28.4 pg (27.0-35.0); Mean Corpuscular Volume 82.3 fL (81-100); NEUTROPHILS % (AUTO) 72.3 % (40-74); Platelet Count 204 bil/L (150-400)
[2016-07-01 03:52] LABS: Magnesium 1.7 mg/dL (1.6-2.6)
[2016-07-01] MEDS: Insulin LISPRO 300 Unit/3 mL Inj SUBQ SCH ×4 (08:00→21:01)
--- NOTE | 2016-07-01 11:08 | NUR ---
Social Work: Readiness for d/c Data: Pt is on day 2 of hospitalization. EMR reviewed. Pt discussed in rounds, states pt likely to d/c in 1-2 days. states no need for RN HH as this time, pt needs to follow up with his PCP. No other anticipated MOLD BREAKER needs at this time. MOLD BREAKER will continue to follow if needs arise. Assessment: Pt who is independent at baseline. Plan: Pt will d/c home via POV when medically stable. No other anticipated MOLD BREAKER needs at this time. MOLD BREAKER will continue to follow if needs arise. SEAN Shay
--- NOTE | 2016-07-01 15:45 | PCM.PNMED ---
Subjective Date of Service Jul 01, 2016 Subjective Patient is a 65-year-old male with systolic CHF, depression, and hypertension admitted for congestive heart failure exacerbation. Hospital day #3. No overnight events. The patient reports feeling some fatigue, which he attributes to lower blood pressure. He reports feeling well otherwise. Exam Vital Signs Vital Sign - Last Date Time Temp Pulse Resp B/P Pulse Ox O2 Delivery O2 Flow Rate FiO2 07/01/16 12:17 36.9 63 16 146/85 95 Room Air 06/30/16 04:30 2.00 06/29/16 11:41 30 Intake and Output 06/30/16 06/30/16 07/01/16 Cumulative From/Thru 15:00 23:00 07:00 06/29/16 10:32 - 07/01/16 06:19 Intake Total 366 ml 940 ml 3253 ml Output Total 750 ml 450 ml 10819 ml Balance -384 ml 490 ml -63203 ml Intake Oral 200 ml 940 ml 2470 ml IV Total 166 ml 783 ml Output Urine Total 750 ml 450 ml 97677 ml # Voids 15 # Bowel Movements 1 1 Exam General: Patient sitting on edge of bed in no acute distress, appropriately interactive. HEENT: Normocephalic, atraumatic. External ears without defect. Cardiovascular: Regular rate and rhythm with no murmurs, rubs, or gallops appreciated Pulmonary: Mild expiratory wheeze on right. No use of accessory muscles. Abdomen: Mild distention of abdomen. Nontender to palpation Extremities: Bilateral lower extremity edema extending just distal to knees. Lower extremity erythema bilaterally Skin: Normal temperature, turgor, and texture Neurological: Grossly neurologically intact Psychiatric: Normal mood and affect. Alert and oriented to person, place, and time. Lab and Diagnostics Result Diagram: 07/01/16 0310 07/01/16 0310 Microbiology Nasal MRSA screen negative X-Rays, CTs and MRIs . X-RAY CHEST ONE VIEW, PORTABLE IMPRESSION: Moderate cardiomegaly, without acute cardiopulmonary disease. Dictated by: Anderson Wilde M.D. on 06/29/2016 at 11:02 X-RAY CHEST ONE VIEW, PORTABLE IMPRESSION: Cardiomegaly without acute pulmonary process. Dictated by: Esthela Hale M.D. on 06/30/2016 at 6:56 12-lead ECG EKG showed sinus rhythm in the 80s, left bundle branch block. Cardiac Echo Impressions . Echocardiogram Report Interpretation Summary: The left ventricle is mildly dilated. Left ventricular systolic function is moderately reduced. The ejection fraction is estimated to be 40-45%. Compared to the prior exam, the left ventricular function is improved. Diastolic function could not be accurately assessed due to confounding valvular disease. The right ventricle is normal size. Right ventricular systolic function is mildly reduced. The right ventricular systolic pressure is estimated at 37 mmHg assuming a right atrial pressure of 3 mm Hg. Both atria are severely dilated. There is severe mitral regurgitation. Flow reversal noted in pulmonary veins consistent with significant mitral regurgitation. Compared to the prior BUSHRA, there has been an increase in the severity of mitral regurgitation. There is no other significant valvular heart disease. The ascending aorta is mildly enlarged. Assessment & Plan 65-year-old male past medical history CHF, systolic dysfunction, depression, hypertension admitted for congestive heart failure exacerbation. Hospital day # 3. 1. CHF exacerbation, systolic dysfunction. Acute on chronic. Present on admission. Ongoing. - Most likely secondary to medication noncompliance - Echo showed EF 40-45% (improved from previous exam), bilateral severe atrial dilation, severe mitral regurgitation - Lasix 40 mg IV in the ED - Lasix decreased from 40mg BID to 40mg daily - Strict monitoring of ins and outs - Restart lisinopril 40mg daily and metoprolol 12.5mg BID - Continue spironolactone 25mg daily - Continue telemetry 2. Chronic hypertension. Present on admission. Improved - Most likely secondary to medication noncompliance exacerbated by #1 - Refractory to nitroglycerin - Antihypertensive as above 3. Chronic kidney disease. Present on admission. Ongoing - Baseline creatinine between 1.3-1.5 - Avoid nephrotoxic agents - Follow with CMP 4.Elevated troponin. Unknown chronicity. Present on admission. Ongoing - Initial troponin level in the ED 0.025 - Most likely secondary to #1and #3 - Troponin stable 5. Hyperglycemia. Present on admission. - A1c 5.9 - Low-dose insulin Lispro correctional scale 6. Hyperlipidemia, chronic. Present on admission - Continue home dose atorvastatin 10mg QHS 7. Depression, chronic. Present on admission. - Not currently on any home medications for this - We will continue to monitor Disposition: Likely discharge tomorrow following transition of IV medications to PO Pain Evaluation: Adequate Pain Control GI Prophylaxis: H2 valente VTE Prophylaxis: Sub-Q Heparin (Unfractionated) (hepi) Resuscitation Status: CPR: Attempt Resuscitation Attending Statement The patient was seen and examined together with Dr. Short on 07/01/2016 and I agree with the history, exam and plan as outlined in the note above. . Cedric Short DO Jul 01, 2016 14:35 Vitor Hung MD July 02, 2016 07:48
--- NOTE | 2016-07-01 18:11 | NUR ---
Activity Pt independent in room, able to walk around nurse unit with cane, steady gait. Pt had no c/o SOB through the day however complaining of a runny nose, stating normal for him. Ongoing care.
[2016-07-02] MEDS: Sodium Chloride LOK Flush 10 mL Syringe IVFLUSH SCH ×2 (00:50→07:52)
[2016-07-02 03:48] VITALS: BP 172/119; PULSE 87; RESP 20; O2SAT 99
[2016-07-02 03:55] VITALS: BP 161/102; PULSE 81
--- NOTE | 2016-07-02 04:22 | NUR ---
Hypertension: BP: 161/102, HR: 81, pt. asymptomatic. Physician notified of findings, no new orders received. Will continue to monitor. Pt. denies pain, denies SOB.
[2016-07-02 04:28] LABS: BASOPHILS % (AUTO) 0.4 % (0-3); EOSINOPHILS % (AUTO) 5.3 % (0-5); MONOCYTES % (AUTO) 9.6 % (4-12); Mean Corpuscular Hemoglobin 28.8 pg (27.0-35.0); Mean Corpuscular Volume 84.8 fL (81-100); NEUTROPHILS % (AUTO) 68.2 % (40-74); Platelet Count 249 bil/L (150-400)
[2016-07-02 05:03] LABS: Magnesium 1.9 mg/dL (1.6-2.6)
[2016-07-02 07:48] VITALS: BP 164/102; PULSE 60; RESP 15; O2SAT 97
[2016-07-02] MEDS: Insulin LISPRO 300 Unit/3 mL Inj SUBQ SCH (08:00)
[2016-07-02 09:14] VITALS: PULSE 83
[2016-07-02] MEDS ORDERED: APIX5TAB PO (10:24)
[2016-07-02] MEDS ORDERED: FURO40TA4 PO (10:24)
[2016-07-02] MEDS ORDERED: LISI-567 PO (10:24)
[2016-07-02] MEDS ORDERED: ATOR10TA66 PO (10:24)
[2016-07-02] MEDS ORDERED: METO25TA6 PO (10:24)
--- NOTE | 2016-07-02 10:33 | PCM.DIMED ---
Therese Leos DO 07/02/16 1032: Discharge Instructions Date of Service July 02, 2016 Dates of Hospitalization Jun 29, 2016 at 12:42 Discharge Diagnosis Discharge Diagnosis 1. CHF exacerbation, systolic dysfunction. Acute on chronic. Present on admission. Improved 2. Chronic hypertension. Present on admission. Ongoing 3. Chronic kidney disease. Present on admission. Ongoing 4.Elevated troponin. Unknown chronicity. Present on admission. Ongoing/stable 5. Hyperglycemia. Present on admission. Improved 6. Hyperlipidemia, chronic. Present on admission. Ongoing 7. Depression, chronic. Present on admission. Ongoing Diet Heart Healthy Activity No restrictions Call your provider Fever or Chills, Shortness of breath, Bleeding, Chest pain, Weakness (unilateral ) Patient Instructions Follow up with your Primary Care Physician in 2 days for blood pressure check and lab work. It is important to check a BMP (basic metabolic panel) so we can adjust your medications if necessary. Follow-up Provider: Fay Dubon MD Follow-up with PCP in: Other (2 days) Vitor Hung MD 07/02/16 1636: Discharge Instructions Attending's Statement The patient was seen and examined together with Dr. Leos on 07/02/2016 and I agree with the history, exam and plan as outlined in the note above. . Therese Leos DO July 02, 2016 10:32 Vitor Hung MD July 02, 2016 16:36
[2016-07-02] MEDS ORDERED: ASPI-973 PO (10:37)
--- NOTE | 2016-07-02 11:09 | NUR ---
Social Work Note: Discharge Data& Assessment: Per pt is medially ready for discharge. Young Nino is a 65 year old male admitted on 06/29/2016 for CHF. Per pt is medically improved and ready to discharge home. SW met with pt at bedside to confirm discharge plan and assess for any unmet needs. Pt confirmed that he will be going home via POV. Pt confirmed understanding of his need to comply with his medications and attend any follow up care as recommended by MD and as scheduled. Pt denies any other needs. No other discharge needs identified. Plan: Per pt is medically ready to discharge home via POV. Pt denies any other needs. No other discharge needs identified. SEAN Carpio
--- NOTE | 2016-07-02 11:21 | NUR ---
Discharge Received orders for patient to discharge home. Vitals stable, so telemetry removed. IVs removed from L forearm, tip intact. Educational materials printed regarding new medications and CHF, discussed in detail. Eliquis pamphlet given to patient, important information discussed, including increased risk of bleeding. Patient has no further questions at this time. Follow-up appointment scheduled for tomorrow, 07/03/16 at 1245 w/ PCP at [facility]. Advised patient to attend this appointment to discuss medication and symptom management, then have labs drawn on 07/04/16. He states understanding to information discussed, including importance of close management for labs and follow-up appointments. All belongings collected and new prescriptions given to patient. He is transported from unit via wheelchair at [address] [facility].
--- NOTE | 2016-07-02 22:59 | PCM.DC.MED ---
Discharge Summary Date of Service July 02, 2016 Dates of Hospitalization Date of Hospital Admission Jun 29, 2016 at 12:42 Date of Discharge: July 02, 2016 Providers: Admitting Physician: Vitor Hung MD Primary Care Physician: Fay Dubon MD Attending Physician: Vitor Hung MD Diagnosis at Time of Discharge Diagnosis at Time of Discharge 1. Acute on chronic CHF exacerbation, systolic dysfunction. Present on admission. Improved 2. Chronic hypertension. Present on admission. Ongoing 3. Chronic kidney disease. Present on admission. Ongoing 4. Elevated troponin. Unknown chronicity. Present on admission. Ongoing/stable 5. Hyperglycemia. Present on admission. Improved 6. Hyperlipidemia, chronic. Present on admission. Ongoing 7. Depression, chronic. Present on admission. Ongoing Procedures XRay, CTs & MRIs . X-RAY CHEST ONE VIEW, PORTABLE IMPRESSION: Moderate cardiomegaly, without acute cardiopulmonary disease. Dictated by: Anderson Wilde M.D. on 06/29/2016 at 11:02 X-RAY CHEST ONE VIEW, PORTABLE IMPRESSION: Cardiomegaly without acute pulmonary process. Dictated by: Esthela Hale M.D. on 06/30/2016 at 6:56 ECG 12 Lead EKG showed sinus rhythm in the 80s, left bundle branch block. Cardiac Echo Impression . Echocardiogram Report Interpretation Summary: The left ventricle is mildly dilated. Left ventricular systolic function is moderately reduced. The ejection fraction is estimated to be 40-45%. Compared to the prior exam, the left ventricular function is improved. Diastolic function could not be accurately assessed due to confounding valvular disease. The right ventricle is normal size. Right ventricular systolic function is mildly reduced. The right ventricular systolic pressure is estimated at 37 mmHg assuming a right atrial pressure of 3 mm Hg. Both atria are severely dilated. There is severe mitral regurgitation. Flow reversal noted in pulmonary veins consistent with significant mitral regurgitation. Compared to the prior BUSHRA, there has been an increase in the severity of mitral regurgitation. There is no other significant valvular heart disease. The ascending aorta is mildly enlarged. Brief History Per admission history and physical on June 29, 2016. Kamran Chand DO is a 65-year-old gentleman with past medical history of congestive heart failure systolic dysfunction, hypertension, depression, prediabetes, atrial flutter with RVR (cardioverted 10/2015) presented to [facility] emergency department via personally owned vehicle secondary to worsening shortness of breath times several weeks. Patient was last admitted to Hospital October 2015 for CHF exacerbation, upon discharged he was prescribed multiple medications and followed up with his primary care physician at [facility]. He saw his primary doctor once after being discharged and not again. He states that somewhere along the way his medications dropped off in that he stopped filling his prescriptions. When asked why he said because "life got in my way". He saw Dr. Hinton cardiology one time as well and was prescribed his current medication list is seen in the med rec. Over the past several weeks he has become increasingly short of breath on exertion and while laying flat stating he must sleep sitting up or using multiple pillows. He states he has a markedly increasing lower extremity edema over the last few weeks. He denies chest pain, headache prior to arrival, syncope, abdominal pain, GI symptoms. He states polyuria, shortness of breath increased lower extremity edema swelling and erythema, left eye blurry vision and at time of interview endorses a headache. He states blurry vision in his left eye. In the ED he was given nitroglycerin sublingual followed by Nitropatch followed by nitro drip at rate of 150 at time of admission. He was also given a milligrams IV Lasix with improvement meant of his shortness of breath and markedly increase in urinary output. Hospital Course 65-year-old male with a history of CHF, hypertension and CKD admitted for congestive heart failure exacerbation. 1. CHF exacerbation, systolic dysfunction. Acute on chronic. Present on admission. Treated. - Most likely secondary to medication noncompliance - Echo showed EF 40-45% (improved from previous exam), bilateral severe atrial dilation, severe mitral regurgitation - Patient received IV dose of Lasix 40 mg in the ED and continued on oral lasix on arrival to the floor. Initially, 40mg BID which was decreased to 40mg daily prior to discharge. - Monitored I/Os and daily weights. - Resumed home lisinopril 40mg daily and metoprolol 12.5mg BID prior to discharge. - Continued home spironolactone 25mg daily, oral potassium held. - Recommend follow up with PCP in 2days for BMP 2. Chronic hypertension. Present on admission. Improved - Patient with significantly elevated BP on admission; SBP of 211 and DBP 139. Most likely secondary to medication noncompliance exacerbated by #1 - Refractory to nitroglycerin and patient reported significant headache on nitro drip. Subsequently started on nicardipine and weaned off nitroglycerin on hospital day 2. - Antihypertensive medications were resumed, as above - Patient is to follow up with his PCP in 1-2 days for blood pressure check. 3. Chronic kidney disease. Present on admission.Appears stable. -Baseline creatinine between 1.3-1.5 -Monitored daily CMPs 4.Elevated troponin. Unknown chronicity. Present on admission. Appears stable. - Initial troponin level in the ED 0.025, near baseline and remained stable. - Most likely secondary to #1and #3 5. Hyperglycemia. Present on admission. Ongoing - A1c 5.9 - Correctional insulin Lispro as needed. 6. Hyperlipidemia, chronic. Present on admission. Ongoing - Continued home dose atorvastatin 10mg QHS 7. Depression, chronic. Present on admission. Ongoing - Not currently on any home medications - Monitored clinically. Exam Vital Signs (Last) Date Time Temp Pulse Resp B/P Pulse Ox O2 Delivery O2 Flow Rate FiO2 07/02/16 09:14 83 07/02/16 07:48 36.8 15 164/102 97 Room Air 06/30/16 04:30 2.00 06/29/16 11:41 30 Exam General: Patient sitting in chair in no acute distress, appropriately interactive. HEENT: Normocephalic, atraumatic. External ears without defect. Cardiovascular: Regular rate and rhythm with no murmurs, rubs, or gallops appreciated Pulmonary: Clear to auscultation bilaterally, normal respiratory effort. No use of accessory muscles. Abdomen: Mild distention of abdomen. Nontender to palpation Extremities:Lower extremity erythema bilaterally. No cyanosis or clubbing. Skin: Normal temperature, turgor, and texture Neurological: Grossly neurologically intact Psychiatric: Normal mood and affect. Alert and oriented to person, place, and time. Test 06/29/16 11:50 06/29/16 13:53 06/30/16 03:20 06/30/16 13:15 Urine Color Yellow (YELLOW) Urine Appearance Clear (CLEAR,HAZY) Urine pH 6.0 (5.0-8.0) Urine Specific [place] 1.015 (1.003-1.035) Urine Protein 100mg/dL (NEG,TRACE) Urine Glucose (UA) Negativemg/dL (NEGATIVE) Urine Ketones Negativemg/dL (NEGATIVE) Urine Occult Blood Negative (NEGATIVE) Urine Nitrite Negative (NEGATIVE) Urine Bilirubin Negative (NEGATIVE) Urine Urobilinogen Normalmg/dL (NORMAL) Urine Leukocyte Esterase Negative (NEGATIVE) Urine RBC 0-2/hpf (0-2) Urine WBC 0-5/hpf (0-5) Urine Epithelial Cells Occasional/hpf (NONE-MOD) Urine Crystals None seen (NONE SEEN) Urine Bacteria Few/hpf (NONE-FEW) Urine Hyaline Casts Rare/lpf (NONE) Urine Granular Casts None seen (NONE SEEN) Urine Waxy Casts None seen (NONE SEEN) Urine Red Blood Cell Casts None seen (NONE SEEN) Urine White Blood Cell Casts None seen (NONE SEEN) Urine Mucus None seen (None Seen) Urine Trichomonas None seen (NONE SEEN) Urine Yeast None (NONE SEEN) Urinalysis Comment None Urine Culture Reflexed Not indicated Prothrombin Time 14.2sec (8.1-12.5) Prothromb Time International Ratio 1.32ratio Activated Partial Thromboplast Time 30.9sec (22.8-33.0) Hemoglobin A1c 5.9% (4.8-5.6) Uric Acid 10.8mg/dL (2.6-7.2) Prealbumin 16mg/dL (20-40) Vitamin B12 Level 618pg/mL (211-946) Folate 10.9ng/mL (>3.0) Thyroid Stimulating Hormone (TSH) 2.160uIU/mL (0.450-4.500) Lactic Acid Level 1.1mmol/L (0.4-2.0) Phosphorus Level 3.3mg/dL (2.5-4.9) Triglycerides Level 89mg/dL (0-149) Cholesterol Level 175mg/dL (100-199) LDL Cholesterol, Calculated 123.200mg/dL (0-99) VLDL Cholesterol 17.800mg/dL HDL Cholesterol 34mg/dL (>39) Cholesterol/HDL Ratio 5.15 (0.0-4.4) Procalcitonin 0.11ng/mL (0.00-0.08) Troponin T 0.020ug/L (0.0-0.011) Test 07/02/16 04:00 White Blood Count 7.0th/mm3 (3.8-10.1) Red Blood Count 5.14mil/mm3 (4.40-5.80) Hemoglobin 14.8g/dL (13.8-17.2) Hematocrit 43.6% (41.0-50.0) Mean Corpuscular Volume 84.8fL (81-100) Mean Corpuscular Hemoglobin 28.8pg (27.0-35.0) Mean Corpuscular Hemoglobin Concent 33.9% (32.0-37.0) Red Cell Distribution Width 15.3% (12.3-15.4) Platelet Count 249bil/L (150-400) Neutrophils (%) (Auto) 68.2% (40-74) Lymphocytes (%) (Auto) 16.4% (14-46) Monocytes (%) (Auto) 9.6% (4-12) Eosinophils (%) (Auto) 5.3% (0-5) Basophils (%) (Auto) 0.4% (0-3) Sodium Level 140mEq/L (134-144) Potassium Level 4.0mEq/L (3.5-5.2) Chloride Level 101mEq/L (97-108) Carbon Dioxide Level 23mmol/L (18-29) Blood Urea Nitrogen 17mg/dL (8-27) Creatinine 1.24mg/dL (0.76-1.27) Estimat Glomerular Filtration Rate 63mL/min (>59) Glucose Level 106mg/dL (60-99) Calcium Level 8.1mg/dL (8.5-10.1) Magnesium Level 1.9mg/dL (1.6-2.6) Total Bilirubin 0.7mg/dL (0.0-1.2) Aspartate Amino Transf (AST/SGOT) 17U/L (0-50) Alanine Aminotransferase (ALT/SGPT) 16U/L (0-44) Alkaline Phosphatase 67U/L (25-160) Pro-B-Type Natriuretic Peptide 707.8pg/mL (0-210) Total Protein 6.0g/dL (6.4-8.4) Albumin 3.1g/dL (3.4-5.0) Microbiology Results Nasal MRSA screen negative Discharge Medications Discharge Medications Apixaban (Eliquis) 5 Mg Tablet 5 MG PO BID Prescribed by: AG COX DO Aspirin (Aspirin) 81 Mg Tablet 81 MG PO DAILY Prescribed by: AG COX DO Atorvastatin Calcium (Atorvastatin Calcium) 10 Mg Tablet 10 MG PO HS Prescribed by: AG COX DO Calcium Carb/Mag Ox/Zinc Sulf (Qnorpoj-Kepskfzfc-Upyu Tablet) 334 Mg-134 Mg-5 Mg Tablet 1 EACH PO DAILY (Reported) Furosemide (Furosemide) 40 Mg Tablet 40 MG PO DAILY Prescribed by: AG COX DO Lisinopril (Lisinopril) 20 Mg Tablet 40 MG PO DAILY Prescribed by: AG COX DO Metoprolol Tartrate (Metoprolol Tartrate) 25 Mg Tablet 25 MG PO BID Prescribed by: AG COX DO As needed Guaifenesin (Guaifenesin) 400 Mg Tablet 800 MG PO BID PRN PRN For Congestion ( Reported) Followup Plan Discharge Diet: Heart Healthy Discharge Activity: No restrictions Patient Instructions Follow up with your Primary Care Physician in 2 days for blood pressure check and lab work. It is important to check a BMP (basic metabolic panel) so we can adjust your medications if necessary. Follow-up Provider: Fay Dubon MD Follow-up with PCP in: Other (2 days) Time spent Greater than 30 minutes was spent in preparation of discharge with greater than 50% of that time dedicated to patient counseling and coordination of care. . Attending Statement The patient was seen and examined together with Dr. Cox on 07/02/2016 and I agree with the history, exam and plan as outlined in the note above. . copies to: Fay Dubon MD, Courtney M DO July 02, 2016 10:33 Vitor Hung MD July 05, 2016 19:33
--- NOTE | 2016-07-03 12:20 | NUR ---
Follow up phone for CHF patients Date:07/03/16 Time:7212 Information Discussed: Spoke with pt post discharge from hospital on 07/02/16. Pt stated that he feels very well today. Pt stated that he did not weigh self this morning. Explained the importance of daily weight and CHF. Pt stated that he understood. Pt is a [facility] pt as well as a [facility] pt. Pt denies C/P, SOB or increased JUAQUIN. Reviewed some of the printed material supplied to pt when was hospitalized ie:fluid retention, daily weight, change in urinary pattern.fatigue and increased SOB. Questions patient had: None at this time.
== END 2016-07-02 11:20 | disposition home or self-care (01) | DRG 292 ==
LOC: SED 10:13 → CCU 12:42 → PCC 06-30 11:27
PROVIDERS: ADMIT Internal Medicine; ATTEND Internal Medicine
DX: I50.23 Acute on chronic systolic (congestive) heart failure (principal); I42.9 Cardiomyopathy, unspecified; R73.9 Hyperglycemia, unspecified; E78.5 Hyperlipidemia, unspecified; F32.9 Major depressive disorder, single episode, unspecified; I34.0 Nonrheumatic mitral (valve) insufficiency; I12.9 Hypertensive chronic kidney disease with stage 1 through stage 4 chronic kidney disease, or unspecified chronic kidney disease; N18.9 Chronic kidney disease, unspecified; Z91.19 Patient's noncompliance with other medical treatment and regimen